=== PATIENT | male | born 1980 | race Hispanic/Latino ===

== ENCOUNTER → 2019-12-09 | Day surgery (SDC) | payer BC ==
[2019-12-06 13:59] LABS: BASOPHILS % 0.3 % (0.0-1.0); EOSINOPHILS % 0.2 % (0.0-6.0); HEMATOCRIT 43.7 % (38.2-49.6); HEMOGLOBIN 14.9 g/dL (14.0-18.0); LYMPHOCYTES # (AUTO) 1.1 (1.0-3.2); LYMPHOCYTES % 10.9 % (18.0-39.1); MEAN CORPUSCULAR HGB CONC 34.1 g/dL (31-35); MEAN CORPUSCULAR VOLUME 90.9 fL (81-99); MONOCYTES # (AUTO) 0.4 (0.2-0.8); MONOCYTES % 3.9 % (4.4-11.3); NEUTROPHILS # (AUTO) 8.3 (2.1-6.9); NEUTROPHILS % 84.4 % (38.7-80.0); PLATELET COUNT 356 x10e3/uL (140-360); RED BLOOD COUNT 4.81 x10e6/uL (4.3-5.7); RED CELL DISTRIBUTION WIDTH 12.2 % (11.7-14.4)
[2019-12-06 14:18] LABS: ALANINE AMINOTRANSFERASE 23 IU/L (0-55); ALBUMIN 4.4 g/dL (3.5-5.0); ALBUMIN/GLOBULIN RATIO 1.2 (0.8-2.0); ALKALINE PHOSPHATASE 68 IU/L (40-150); ANION GAP 12.4 mmol/L (8-16); BLOOD UREA NITROGEN 21 mg/dL (7-26); BUN/CREATININE RATIO 20 (6-25); CALCIUM 9.6 mg/dL (8.4-10.2); CARBON DIOXIDE 29 mmol/L (22-29); CHLORIDE 101 mmol/L (98-107); CREATININE, SERUM 1.06 mg/dL (0.72-1.25); EST GLOMERULAR FILTRATION RATE > 60 ML/MIN (60-); GLUCOSE 123 mg/dL (74-118); POTASSIUM 4.4 mmol/L (3.5-5.1); SODIUM 138 mmol/L (136-145)
[~2019-12-09] MED LIST: B&O 60MG R/S 60 MG SUPP PR ONE; CEFTRIAXONE SOD 1 GM/NS 50 ML 50 ML IV ONE; DEXAMETHASONE SOD PHOS INJ 4 MG/ML VIAL ONE; FENTANYL CITRATE/PF 100MCG/2 ML INJ ONE; FLOMAX0.4 MG PO; IOPAMIDOL 300MG/ML 50ML INFUS..BTL IV ONE; LIDOCAINE HCL 2% LOCAL INJ 5 ML SDV VIAL INJ ONE; MIDAZOLAM HCL 2 MG/2 ML VIAL ONE; ONDANSETRON HCL INJ 2MG/ML 2ML 2 MG/ML VIAL ONE; OXYBUTYNIN CHLOR5 MG PO; PROPOFOL IV EMULSION 10 MG/ML 20 ML VIAL ONE; SEVOFLURANE INHAL SOLN 250 ML PEN BTL ONE; TYLENOL WITH C1 EAC1 PO
--- OUTSIDE RECORDS SUMMARY | 2019-12-09 05:41 | XMS REPORT ---
Author Author [facility] Organization [facility] Address Unknown Phone Unavailable Care Team Providers Care Magnetic Tester Name Role Phone Unavailable Unavailable Problems This patient has no known problems. Allergies, Adverse Reactions, Alerts This patient has no known allergies or adverse reactions. Medications This patient has no known medications. Results Test Description Test Time Test Comments Text Results Atomic Results Result Comments CT Abdomen and Pelvis w/ Contrast 2019-11-23 10:17:33 Patient: JORY MAURO Date/Time11/23/2019 09:35 CSTReason for ExamRLQ Pain;Other (please specify)ReportHISTORY: Right lower quadrant painEXAM TYPE: CT abdomen and pelvis with IV contrast.Location code:[id number]:Contrast - IV contrast was given, no oral contrast was givenPortal venous phase - abdomen and pelvisNo delayed phase images were obt ained.Reconstructions - coronal and sagittal planesOne or more of the following dose reduction techniques were used: Automated exposure control, adjustment of the mA and/or kV according to patient size, and/or utilization of iterative reconstruction technique.COMPARISON: NoneFINDINGS:Statements: None.Thoracic: Included images of the lower chest demonstrate no abnormalities.Hepatobiliary: The liver is normal without focal lesion. The gallbladder is normal. No biliary dilation.Pancreas: Normal.Spleen: Normal.Adrenals: Normal.Genitourinary: The kidneys are normal in size and contour. However, there is slightly asymmetric enhancement of the kidneys with mild delayed left renal nephrogram due to obstruction. There is mild hydroureteronephrosis present in the left kidney with surrounding perinephric fat stranding (image 36, series 2), secondary to a 2 mm obstructing stone seen at the left UVJ (image 80, series 2; coronal image 58). There is an additional nonobstructing 2 mm stone present in the lower pole the left kidney (image 58, series 51437). There is a 3 mm nonobstructing stone in the right upper pole (image 67, series [id number]) No right-sided hydronephrosis. No suspicious renal mass. Evaluation of the bladder is limited, but no obvious bladder abnormality is present. The reproductive organs are unremarkable.Gastrointestinal: The stomach is mildly distended with fluid and particulate matter. No wall thickening or other significant change. No bowel obstruction or perienteric inflammation. The appendix is normal and air-filled (image 70, series 2). Moderate volume stool burden seen throughout segments of the colon and rectum.Vascular: No evidence of aneurysm or dissection.Lymphatics: No enlarged lymph nodes by CT size criteria.Bones/Soft Tissues: No acute osseous findings. Mild to moderate multilevel degenerative changes of the spine. No ventral hernias.Peritoneum/Other: No extraluminal air. No extraluminal fluid.Exam Date/Time11/23/2019 09:35 CSTReportIMPRESSION:1. Mild left hydroureteronephrosis with surrounding perinephric fat stranding and delayed nephrogram, secondary to 2 mm left UVJ stone.2. Additional 2 mm nonobstructing stone seen in the lower pole left kidney and 3 mm nonobstructing stone seen in the right upper pole. No right-sided hydronephrosis.3. Normal appendix. No bowel obstruction. Moderate volume stool seen throughout the colon and rectum, consistent with constipation. Final Dictated by: MD Sanju, Minactated DT/TM: 11/23/2019 10:11 amSigned by: MD Sanju, CandylySigned (Electronic Signature): 11/23/2019 10:17 am Lipase Level 2019-11-23 09:15:13 Lipase Level (test code=Lipase Level) 104 U/L 13-60 Comprehensive Metabolic [id number] 09:15:12* Test Item Value Reference Range Comments Sodium Level (test code=Sodium Level) 139.0 mmol/L 135.0-145.0 Potassium Level (test code=Potassium Level) 4.1 mmol/L 3.5-5.1 Chloride Level (test code=Chloride Level) 98 mmol/L 98-105 CO2 (test code=CO2) 29 mmol/L 22-29 Anion Gap (test code=Anion Gap) 12 mmol/L 7-16 BUN (test code=BUN) 21.50 mg/dL 6.00-20.00 Creatinine Level (test code=Creatinine Level) 1.30 mg/dL 0.70-1.20 BUN/Creat Ratio (test code=BUN/Creat Ratio) 17 Glucose Level (test code=Glucose Level) 161 mg/dL 70-115 Calcium Level (test code=Calcium Level) 9.5 mg/dL 8.3-10.5 Alk Phos (test code=Alk Phos) 65 U/L 40-129 Bilirubin Total (test code=Bilirubin Total) 0.3 mg/dL 0.1-0.9 Albumin Level (test code=Albumin Level) 4.5 g/dL 3.5-5.2 Protein Total (test code=Protein Total) 7.6 g/dL 6.4-8.3 ALT (test code=ALT) 15 U/L 1-41 AST (test code=AST) 19 U/L 1-40 Globulin (test code=Globulin) 3.1 g/dL 2.9-3.1 A/G Ratio (test code=A/G Ratio) 1.5 ratio Comprehensive Metabolic [id number] 09:15:12* Test Item Value Reference Range Comments Sodium Level (test code=Sodium Level) 139.0 mmol/L 135.0-145.0 Potassium Level (test code=Potassium Level) 4.1 mmol/L 3.5-5.1 Chloride Level (test code=Chloride Level) 98 mmol/L 98-105 CO2 (test code=CO2) 29 mmol/L 22-29 Anion Gap (test code=Anion Gap) 12 mmol/L 7-16 BUN (test code=BUN) 21.50 mg/dL 6.00-20.00 Creatinine Level (test code=Creatinine Level) 1.30 mg/dL 0.70-1.20 BUN/Creat Ratio (test code=BUN/Creat Ratio) 17 Glucose Level (test code=Glucose Level) 161 mg/dL 70-115 Calcium Level (test code=Calcium Level) 9.5 mg/dL 8.3-10.5 Alk Phos (test code=Alk Phos) 65 U/L 40-129 Bilirubin Total (test code=Bilirubin Total) 0.3 mg/dL 0.1-0.9 Albumin Level (test code=Albumin Level) 4.5 g/dL 3.5-5.2 Protein Total (test code=Protein Total) 7.6 g/dL 6.4-8.3 ALT (test code=ALT) 15 U/L 1-41 AST (test code=AST) 19 U/L 1-40 Globulin (test code=Globulin) 3.1 g/dL 2.9-3.1 A/G Ratio (test code=A/G Ratio) 1.5 ratio eGFR AA (test code=eGFR AA) >60 mL/min/1.73 m2 eGFR (estimated Glomerular Filtration Rate) is an estimated value, calculated from the patient's serum creatinine using the MDRD equation. It is NOT the patient's actual GFR. The eGFR provides a more clinically useful measure of kidney disease than serum creatinine alone.This calculation takes sex and race into account, if the information is provided. If the race is not provided, and the patient is -Dominican, multiply by 1.212. If sex is not provided, and the patient is female, multiply by 0.742. Results for patients <18 years of age have not been validated by the MDRD study and should be interpreted with caution. eGFR Result Interpretation:eGFR > or=60 is in the Normal RangeeGFR < 60 may mean kidney diseaseeGFR < 15 may mean kidney failure Ranges recommended by the National Kidney Foundation, http://nkdep.nih.gov Comprehensive Metabolic [id number] 09:15:12* Test Item Value Reference Range Comments Sodium Level (test code=Sodium Level) 139.0 mmol/L 135.0-145.0 Potassium Level (test code=Potassium Level) 4.1 mmol/L 3.5-5.1 Chloride Level (test code=Chloride Level) 98 mmol/L 98-105 CO2 (test code=CO2) 29 mmol/L 22-29 Anion Gap (test code=Anion Gap) 12 mmol/L 7-16 BUN (test code=BUN) 21.50 mg/dL 6.00-20.00 Creatinine Level (test code=Creatinine Level) 1.30 mg/dL 0.70-1.20 BUN/Creat Ratio (test code=BUN/Creat Ratio) 17 Glucose Level (test code=Glucose Level) 161 mg/dL 70-115 Calcium Level (test code=Calcium Level) 9.5 mg/dL 8.3-10.5 Alk Phos (test code=Alk Phos) 65 U/L 40-129 Bilirubin Total (test code=Bilirubin Total) 0.3 mg/dL 0.1-0.9 Albumin Level (test code=Albumin Level) 4.5 g/dL 3.5-5.2 Protein Total (test code=Protein Total) 7.6 g/dL 6.4-8.3 ALT (test code=ALT) 15 U/L 1-41 AST (test code=AST) 19 U/L 1-40 Globulin (test code=Globulin) 3.1 g/dL 2.9-3.1 A/G Ratio (test code=A/G Ratio) 1.5 ratio eGFR AA (test code=eGFR AA) >60 mL/min/1.73 m2 eGFR (estimated Glomerular Filtration Rate) is an estimated value, calculated from the patient's serum creatinine using the MDRD equation. It is NOT the patient's actual GFR. The eGFR provides a more clinically useful measure of kidney disease than serum creatinine alone.This calculation takes sex and race into account, if the information is provided. If the race is not provided, and the patient is -Dominican, multiply by 1.212. If sex is not provided, and the patient is female, multiply by 0.742. Results for patients <18 years of age have not been validated by the MDRD study and should be interpreted with caution. eGFR Result Interpretation:eGFR > or=60 is in the Normal RangeeGFR < 60 may mean kidney diseaseeGFR < 15 may mean kidney failure Ranges recommended by the National Kidney Foundation, http://nkdep.nih.gov eGFR Non-AA (test code=eGFR Non-AA) >60.00 mL/min/1.73 m2 eGFR (estimated Glomerular Filtration Rate) is an estimated value, calculated from the patient's serum creatinine using the MDRD equation. It is NOT the patient's actual GFR. The eGFR provides a more clinically useful measure of kidney disease than serum creatinine alone.This calculation takes sex and race into account, if the information is provided. If the race is not provided, and the patient is -Dominican, multiply by 1.212. If sex is not provided, and the patient is female, multiply by 0.742. Results for patients <18 years of age have not been validated by the MDRD study and should be interpreted with caution. eGFR Result Interpretation:eGFR > or=60 is in the Normal RangeeGFR < 60 may mean kidney diseaseeGFR < 15 may mean kidney failure Ranges recommended by the National Kidney Foundation, http://nkdep.nih.gov Prothrombin Time and [id number] 09:06:47* Test Item Value Reference Range Comments Prothrombin Time (test code=Prothrombin Time) 10.2 seconds 9.8-13.4 INR (test code=INR) 0.9 ratio 0.6-1.2 Partial Thromboplastin [id number] 09:06:47* Test Item Value Reference Range Comments Partial Thromboplastin Time (test code=Partial Thromboplastin Time) 28.90 seconds 24.39-37.25 Automated [id number] 08:49:34* Test Item Value Reference Range Comments Neutro Auto (test code=Neutro Auto) 87.9 % 36.0-70.0 Lymph Auto (test code=Lymph Auto) 6.7 % 12.0-44.0 Candler Auto (test code=Candler Auto) 4.5 % 0.0-11.0 Eos, Auto (test code=Eos, Auto) 0.3 % 0.0-7.0 Basophil Auto (test code=Basophil Auto) 0.2 % 0.0-2.0 Neutro Absolute (test code=Neutro Absolute) 11.8 x10 1.6-7.4 Lymph Absolute (test code=Lymph Absolute) .90 x10 .50-4.60 Candler Absolute (test code=Candler Absolute) .61 x10 .00-1.20 Eos Absolute (test code=Eos Absolute) 0.04 x10 0.00-0.74 Baso Absolute (test code=Baso Absolute) 0.03 x10 0.00-0.21 IG [id number] 08:49:34* Test Item Value Reference Range Comments IG (test code=IG) 0.4 % 0.0-5.0 IG Abs (test code=IG Abs) 0 x10 Complete Blood Count with [id number] 08:49:33* Test Item Value Reference Range Comments WBC (test code=WBC) 13.4 x10 4.4-10.5 RBC (test code=RBC) 4.70 x10 4.10-5.70 Hgb (test code=Hgb) 14.4 g/dL 13.4-17.4 Hct (test code=Hct) 43.0 % 38.7-52.0 MCV (test code=MCV) 91.50 fL 80.00-100.00 MCHC (test code=MCHC) 33.50 g/dL 32.00-37.50 RDW CV (test code=RDW CV) 11.9 % 11.5-14.5 MCH (test code=MCH) 30.6 pg 27.0-32.5 Platelets (test code=Platelets) 357.0 x10 140.0-440.0 MPV (test code=MPV) 9.8 fL Slide Review (test code=Slide Review) Auto Auto Result created by [email or web address] nRBC (test code=nRBC) 0 NRBC Abs (test code=NRBC Abs) 0.00 x10 IPF (test code=IPF) 0 %
--- OUTSIDE RECORDS SUMMARY | 2019-12-09 05:41 | XMS REPORT | Summary of Care ---
Author Author Andrea Holden, Debi Organization Unknown Address Unknown Phone Unavailable Care Team Providers Care Production Gear Cutter Name Role Phone HIRA BORJAS M.D. Unavailable Unavailable Unavailable Unavailable Functional Status Name Dates Details Functional status health issues are not documented Status: Name Dates Details Cognitive status health issues are not documented Status: Problems Name Dates Details Bartholomew splints, left, initial encounter (844.9, S86.892A) Status: Active Left ankle tendinitis (727.06, M77.52) Status: Active Medications Name Dates Details Meloxicam TABS Active Diclofenac Sodium 75 MG Oral Tablet Delayed Release TAKE 1 TABLET Every twelve hours * Quantity: 30 Refills: 0 HIRA BORJAS M.D. * Start : 27-Feb-2018 Active 60 Tablet Bottle Allergies and Adverse Reactions Name Dates Details sulfa (Allergy) Status: Active Past Medical History Name Dates Details History of Patient denies medical problems (V49.89, Z78.9) Status: Resolved Procedures Procedure Dates Details History of No history of surgery Completed Immunization Name Dates Details Immunizations not documented Family History Name Dates Details Family history of respiratory failure (V17.6, Z83.6) Status: Active Social History Name Dates Details - Status: Name Dates Details Never smoker Vital Signs Date Test Result Details [id number] Height 70 in Status: Weight 206 lb Status: Body Mass Index Calculated 29.56 kg/m2 Status: Body Surface Area Calculated 2.11 m2 Status: Results Date Description Value Details [id number] [U] XRAY ANKLE MIN 3 VWS LEFT [id number] XR ANKLE MIN 3 VWS LEFT Images acquired, not reported on this accession number. Plan of Care Name Dates Details Planned Observations Planned Goals not documented Planned Encounters Appointment; HIRA BORJAS M.D. On: 20-Mar-2018 9:15 Instructions Name Dates Details Instructions not documented Encounters Appointment; HIRA BORJAS M.D. Encounter Diagnosis: Problem not documented On: 27-Feb-2018 9:30 Appointment; HIRA BORJAS M.D. Encounter Diagnosis: Problem not documented On: 20-Mar-2018 9:15
[2019-12-09 08:50] VITALS: BP 137/98
--- NOTE | 2019-12-15 20:42 | Operative Report ---
DATE OF PROCEDURE: 12/09/2019 SURGEON: Henry Copeland MD PREOPERATIVE DIAGNOSES: 1. Nephrolithiasis. 2. Left hydronephrosis. 3. Renal colic. POSTOPERATIVE DIAGNOSES: 1. Nephrolithiasis. 2. Left hydronephrosis. 3. Renal colic. 4. Left distal ureteral stricture. TEST PERFORMED: 1. Cystourethroscopy with bilateral ureteral catheterization and retrograde ureteropyelography (separate procedure performed for the renal colic). 2. Interpretation of retrograde ureteropyelography. 3. Supervision of fluoroscopy, no radiologist present. 4. Left ureteroscopy with dilation of the distal ureteral stricture (separate procedure performed for the diagnosis of stricture). 5. Left ureteroscopy with stone manipulation and extraction (separate procedure performed for the left nephrolithiasis). 6. Radiological services with supervision and interpretation of ureteroscopy. 7. Cystourethroscopy and insertion of left indwelling ureteral stent (separate procedure performed to relieve the hydronephrosis). ANESTHESIA: General. COMPLICATIONS: None. CLINICAL SUMMARY: Uri Ordoñez is a 39-year-old man with ureterolithiasis and renal colic and hydronephrosis. He is brought for the above procedure. He is aware of the risks of bleeding, infection, injury to adjacent structures, need for additional procedures, and would like to proceed. This procedure is not an elective procedure and may not wait until the COVID-19 emergency is over. The patient has an obstructive kidney and failure to do this procedure may result in an end-organ damage to the kidney, not to mention persistent pain to the patient. OPERATIVE PROCEDURE IN DETAIL: Informed consent was verified. Uri Ordoñez was properly identified, taken to the operating room, placed on the cystoscopy table in supine position. Anesthesia was uneventfully begun. The patient was then carefully and gently repositioned in dorsal lithotomy position with all pressure points well padded. His genitalia were prepared and draped in usual sterile fashion. The cystoscope sheath with the visual obturator in place was atraumatically inserted in the patient's urethra. It was guided unremarkable distal urethra through normal sphincteric region through the prostate bed, which was exhibited very early BPH and into the patient's bladder. Grade 1 trabeculations were noted. There were no tumors no stones, and no diverticula. Normally positioned configured ureteral orifices were identified. Ureteral catheter was then placed into the right ureter and retrograde ureteral pyelograms were performed and it was then placed in the left ureter and retrograde ureteral pyelograms were performed. A guidewire was then placed in the left ureter and guided to the level of the patient's kidney. A semi-rigid ureteroscope was then placed alongside the guidewire and guided into the patient's left ureter. There was ureteral stricture present. We utilized the ureteroscope to gently dilate across this stricture. Once we passed this ureteral stricture, we did not identify stone. It is very likely the patient passed the stone, caused trauma, which caused the stricture and then caused persistent symptomatology due to obstruction. The flexible ureteroscope was then placed over the guidewire into the patient's kidney. We identified the stone in the lower pole. The stone was grasped with Nitinol tipless basket and extracted atraumatically. With cystoscopic and fluoroscopic guidance, the left-sided indwelling ureteral stent was then placed, coiled in the patient's kidneys as well as the patient's bladder. The retaining suture was cut short. Interpretation of retrograde ureteropyelography contrast was instilled in retrograde fashion bilaterally. The right side was unremarkable. There were no tumors, no stones, no diverticula. Unobstructed drainage was observed fluoroscopically. The left side exhibited narrowing at the distal ureter with hydronephrosis present. There is a filling defect in the lower pole calyx that correspond with the stone we extracted. The stent was in good position, coiled the patient's kidney as well as the patient's bladder at the end of the case. The patient's bladder was drained and cystoscope was withdrawn. Belladonna and opium suppository were placed, revealing a 20 g prostate that is smooth, non-fluctuant without any nodules. The patient was then uneventfully reversed from anesthesia and taken to recovery room in stable condition. There were no complications to the procedure. He tolerated the procedure well. Explicit postop instructions were given. We will plan to return the patient to the operating room in several weeks to remove the stent, evaluate his ureteral stricture, and also hope to render the patient stent free and stone free. Henry Copeland MD OH/MODL /[id number]
== END | disposition home or self-care (01) ==
LOC: OR 05:30
PROVIDERS: ATTEND Urology
DX: N13.2 Hydronephrosis with renal and ureteral calculous obstruction (principal); N13.5 Crossing vessel and stricture of ureter without hydronephrosis; N40.0 Benign prostatic hyperplasia without lower urinary tract symptoms; N32.89 Other specified disorders of bladder; R80.9 Proteinuria, unspecified; G89.29 Other chronic pain; E66.9 Obesity, unspecified; Z88.2 Allergy status to sulfonamides; Z01.810 Encounter for preprocedural cardiovascular examination; Z87.891 Personal history of nicotine dependence
CPT/HCPCS: 36415; 52332; 52344; 52352; 74420; 80053; 83970; 84550; 85025; 88300; 93005; C1758; C1766; C2617; J0696; J1100; J2001; J2250; J2405; J2704; J3010; Q9967

== ENCOUNTER → 2020-01-03 | Day surgery (SDC) | payer BC ==
[~2020-01-03] MED LIST changes: +METOCLOPRAMIDE HCL 10 MG/2ML VIAL ONE
[2020-01-03 12:21] VITALS: BP 119/78
--- NOTE | 2020-01-04 12:51 | Operative Report ---
DATE OF PROCEDURE: 01/03/2020 SURGEON: Henry Copeland MD PREOPERATIVE DIAGNOSES: 1. Left ureterolithiasis. 2. Left ureteral stricture. 3. Left indwelling ureteral stent. POSTOPERATIVE DIAGNOSES: 1. Left ureterolithiasis. 2. Left ureteral stricture. 3. Left indwelling ureteral stent. OPERATION PERFORMED: Note, these were all staged procedures as part of multistaged, multistep process in managing the patient's urolithiasis. 1. Cystourethroscopy with complicated removal of left indwelling ureteral stent (separate procedure performed for the diagnosis of the stent done with separate scope). 2. Left semi-rigid and flexible ureteral pyeloscopy (separate procedure performed to evaluate for any residual ureterolithiasis). 3. Radiological services for supervision and interpretation of ureteroscopy. 4. Interpretation of retrograde ureteropyelography. 5. Supervision of fluoroscopy, no radiologist present. ANESTHESIA: General. COMPLICATIONS: None. CLINICAL SUMMARY: Uri Ordoñez is a 39-year-old man with ureterolithiasis. He underwent ureteroscopy with dilation of the stricture and manipulation and extraction of the stone. The patient was left with a stent in place and is brought to the operating room to remove the stent and evaluate for any residual stones. He is aware of the risks of bleeding, infection, injury to adjacent structures, need for additional procedures and elected to proceed. This procedure is not elective. This procedure is done during the COVID-19 crisis due to the fact that the patient has persistent pain and a kidney stone with potential to increase and cause further deterioration of the patient's left kidney function. Preservation of this kidney function is requiring us to perform multiple procedures on this massive stone in order to be able to clear it so that the patient's kidney may be rehabilitated and hopefully prevent loss of this kidney. The patient understands the risk of coronavirus infection caused by leaving his house is outweighed by the risk of damage to and deteriorations of his left kidney. He also wants to proceed to eliminate the need for his stent. OPERATIVE PROCEDURE IN DETAIL: Informed consent verified. Uri Ordoñez was properly identified and taken to the operating room, placed on the cystoscopy table in supine position. Anesthesia was uneventfully begun. The patient was then carefully gently repositioned in the dorsal lithotomy position with all pressure points well padded. His genitalia were prepared and draped in usual sterile fashion. The cystoscope sheath with the visual obturator in place was atraumatically inserted into the patient's urethra, it was guided down the unremarkable urethra through a normal sphincteric region through the normal prostate bed into the patient's bladder. Panendoscopy revealed no tumors, no stones, no suspicious lesions. There was a stent emerging from the left ureteral orifice and minimal amount of mucosal erythema around the stent was noted. The guidewire was then placed alongside the stent and guided to the level of the patient's kidney. The stent was then grasped completely, removed, and discarded. Semi-rigid ureteroscope was then inserted alongside the guidewire and atraumatically advanced into the left ureter. Left ureter was unremarkable. There were no tumors, no stones, no diverticula. There were no strictures noted. There was a minimal amount of scarring noted and blanching where the patient's previous ureteral stricture was, but this was opened. The semi-rigid ureteroscope was withdrawn. Flexible ureteroscope was then passed easily over the guidewire to the level patient's kidney. Panendoscopy revealed Emmanuel's plaques, but no tumors, no stones, no diverticula. No suspicious mucosal lesions were identified. We examined the ureter as we exited, it exhibited no strictures, no narrowing, no stones, and no lesions. Interpretation of retrograde ureteropyelography contrast was instilled in a retrograde fashion on the left hand side. There was chronic appearing fullness and mild calyceal blunting, most likely related to reflux up stent. There were no mucosal lesions. There is no ureterectasis. Unobstructed drainage was observed fluoroscopically. There was a pyelolymphatic and pyelovenous backflow noted from the ureteroscopy procedure. The patient's bladder was drained. Cystoscope was withdrawn. Belladonna and opium suppository were placed revealing a 20 g prostate that is smooth, nonfluctuant without any nodules. The patient was then uneventfully reversed from anesthesia and taken to recovery room in stable condition. There were no complications to the procedure. He tolerated the procedure well. PLANS: Plans will be to follow up as an outpatient, perform metabolic stone workup and of course ongoing urological followup is a must. Henry Copeland MD OH/MODL /[id number] THOMAS
== END | disposition home or self-care (01) ==
LOC: OR 09:03
PROVIDERS: ATTEND Urology
DX: N20.1 Calculus of ureter (principal); N13.5 Crossing vessel and stricture of ureter without hydronephrosis; Z46.6 Encounter for fitting and adjustment of urinary device; F17.210 Nicotine dependence, cigarettes, uncomplicated; Z88.2 Allergy status to sulfonamides
CPT/HCPCS: 52351; 74420; C1769; J0696; J1100; J2001; J2250; J2405; J2704; J2765; J3010; Q9967